=== PATIENT | male | born 1955 | race Caucasian/White ===

== ENCOUNTER → 2018-01-08 11:30 | Outpatient (CLI) | payer OTHER, SELFPAY ==
--- NOTE | 2018-01-08 11:31 | CT_ITS ---
STUDY: CT ABDOMEN AND PELVIS WITH CONTRAST REASON FOR EXAM: Male, 62 years old. Left groin pain. History of multiple hernia repairs. RADIATION DOSAGE (If Supplied By Facility): CTDIvol = ( 19.25 ) mGy, DLP = ( 1585.75 ) mGycm TECHNIQUE: Transaxial images were obtained from the dome of the diaphragm to the symphysis pubis with oral contrast. 100 ml of Isovue 300 contrast was administered. Sagittal and coronal images were reconstructed. Individualized dose optimization techniques were used for this CT. COMPARISON: None. FINDINGS: Minimal degree of right basilar atelectasis. The visualized portions of the heart are within normal limits. There is decreased attenuation of the liver consistent with steatosis. Normal gallbladder and extrahepatic biliary system. Normal spleen. Normal pancreas. Normal bilateral adrenal glands. Normal right kidney. Normal left kidney. Normal visualized stomach. Normal small intestine. Normal colon. The appendix is visualized and appears normal. There is scattered atherosclerotic calcification of the abdominal aorta, without a demonstrated aneurysm. Normal inferior vena cava. Normal retroperitoneum. Normal urinary bladder. Small bilateral hydroceles. Moderate sized left inguinal hernia containing sigmoid colon. Small bilateral benign-appearing inguinal lymph nodes. There are degenerative changes of the visualized lumbar spine. CT/Abdomen/Pelvis WITH Contrast IMPRESSION: Moderate sized left inguinal hernia containing a segment of nondilated sigmoid colon. Electronically Signed: Yves Haque MD at 13:44 EDT Tel [phone], Service support ,
[2018-01-08 13:15] LABS: CREATININE FINGERSTICK 0.9 mg/dL (0.70-1.30); EGFR FINGERSTICK > 60.0000 mL/min (>60)
== END ==
PROVIDERS: Visit Provider Surgery
DX: R10.32 Left lower quadrant pain (principal)
CPT/HCPCS: 74177; Q9967

== ENCOUNTER 2018-01-18 05:18 | Day surgery (SDC) | payer OTHER, SELFPAY ==
[2018-01-18] VITALS (8 sets, daily range): BP systolic 104–123; BP diastolic 70–85; PULSE 69–93; RESP 14–16; TEMP 36.6–36.9; O2SAT 94–98; BMI 28.2
--- NOTE | 2018-01-18 05:28 | EKG12_ITS ---
Test Reason : PRE-OP Blood Pressure : / mmHG Vent. Rate : 069 BPM Atrial Rate : 069 BPM P-R Int : 152 ms QRS Dur : 098 ms QT Int : 402 ms P-R-T Axes : 044 030 032 degrees QTc Int : 430 ms Normal sinus rhythm Normal ECG No previous ECGs available Confirmed by MAKENZIE ZAMORA, JUSTINA ([id number]), editor managing newspaper VASQUEZ MIR ([id number]) on 01/21/2018 2:08:02 PM Referred By: Niranjan Fritz Confirmed By:JUSTINA BANEGAS MD
[2018-01-18 06:38] LABS: Anion Gap 7 (5-15); BUN 24 mg/dL (7-18); Calcium,Total 8.1 mg/dL (8.5-10.1); Chloride 108 mmol/L (98-107); Creatinine, Serum 0.83 mg/dL (0.70-1.30); EST Glomerular Filtration Rate 100 mL/min (>60); Est Glom Filt Rate - Afr Amer 121 mL/min (>60); Estimated Creatinine Clearance 103.88 ml/min; Glucose 116 mg/dL (74-106); Potassium 4.1 mmol/L (3.5-5.1); Sodium Level 143 mmol/L (136-145)
[2018-01-18] MEDS: Cefazolin 2 GM in 0.9% Normal Saline 100 ML IV (07:08)
--- NOTE | 2018-01-18 07:20 | PCM.DC.HER ---
Discharge Diet: Light diet - advance as tolerated Discharge Activity: Return to Normal Activity, May Drive - when you are no longer taking narcotic pain medications., May Shower - with the bandage in place 1-2 days after surgery. Lifting Restrictions: 20 pounds for 8 weeks. Additional Activity Instructions:: Climbing stairs is fine, walking is encouraged. Sitting in bed may be uncomfortable. Sitting up using your lateral muscles (sitting up sideways) is usually more comfortable. Do not drive, work heavy equipment of sign legal documents for 24 hours. If your hernia repair was an ingunial repair, you may have scrotal swelling, an ice pack and/or athletic support can provide more comfort. Pain medications may cause nausea, you should typically eat light foods as you take your pain medications. Pain medications may also cause constipation. If you have difficulty with this, discuss with your doctor. Call your doctor if your incision/area has: Continuous Slow Oozing, Sudden Increased Bleeding, Increased Pain/ Swelling, Increased Redness, Foul Smelling Discharge Call your doctor if you observe: Fever of 101 or Higher Suture Line Care: Avoid Pulling/Pushing, Avoid Pinching/Bending Additional Dressing/Incision Instructions:: Leave the operative bandage on for 2-3 days. When you remove the bandage, leave the steri-strips on place until your follow up appointment or they fall off. Allergies/Adverse Reactions: Allergies No Known Allergies Allergy (Verified 01/16/18 08:23) Medications to take at Discharge aspirin 81 mg tablet,delayed release 81 mg PO QDAY tab 01/08/18 cartilage 40 mg-collagen 12 mg-hyaluronic ac 3.3 mg-vit C 30 mg tablet 2 tab PO QDAY ea 01/08/18 losartan 50 mg-hydrochlorothiazide 12.5 mg tablet 1 tab PO QDAY 01/08/18 omega 1-thx-ssp-fish oil 1,000 mg (120 mg-180 mg) capsule 1 cap PO DAILY 01/08/18 oxycodone-acetaminophen 5 mg-325 mg tablet 1 tab PO Q6H PRN tab 01/08/18 Oxycodone HCl/Acetaminophen [Percocet 5/325] 1 - 2 tab PO Q4H PRN PRN 4 Days #30 tab 01/18/18 The following prescriptions were given: Oxycodone HCl/Acetaminophen [Percocet 5/325] 1 - 2 tab PO Q4H PRN PRN 4 Days #30 tab PRN Reason: Pain Primary Care Physician: Gunnar Doctor,Out of [Primary Care Provider] - Please Follow Up With: Niranjan Fritz MD - [phone] When: Plan to have a follow up appointment in 7 days. Call to schedule.
--- NOTE | 2018-01-18 07:21 | PCM.OPRPT ---
Problem List (1) Recurrent inguinal hernia of left side without obstruction or gangrene Status: Acute Report of Operation Date of Procedure: 01/18/18 Pre-Operative Diagnosis: k40.91 recurrent left inguinal hernia without obstruction or gangrene Post-Operative Diagnosis: same Surgery/Procedure Performed:: Open repair of recurrent left inguinal hernia Type of Anesthesia:: General Anesthesiologist: Balbir Hughes Description of Procedure: Patient was brought in the operating room and placed in the supine position. Under excellent general endotracheal intubation the left lower quadrant of his abdomen and penis and testicles were sterilely prepped and draped in the usual fashion. Incision was made in the groin area after local was injected. Dissection was carried down superficial inferior epigastric vessel was tied off with 2-0 Vicryl. I entered Sharif's fascia identified the recurrent laryngeal nerve and protected it medially. I then painstakingly dissected the cord and vessel structures off of this thick hernia sac that went all the way down to his testicle. This took a considerable amount of time making sure that we did not injure the blood supply at all once I had the hernia sac completely dissected free I placed it back into its preperitoneal space I then placed an extra large plug into this defect tacked it with 3 sutures of 0 Prolene and then placed the onlay mesh was tacked it to the pubic tubercle with 2 sutures of 0 Prolene I ran 1 of them along the ilioinguinal ligament and the other along the shelving edge of the transversalis fascia. The espinosa ring allowed the cord and vessel structures to come through very easily. I tied the sutures superiorly on top on themselves leaving enough room so that my fifth digit could go into the hole very easily so that the blood supply was not strangulated. I injected local in the wound ilioinguinal nerve was brought back down the external oblique fascia was brought together with 2-0 Vicryl. Sharif's was brought together with 2-0 Vicryl and running 4-0 Monocryl on the skin. Testicle was brought back into the scrotum Steri-Strips are applied sterile dressings were applied and the patient tolerated the procedure well. - Admit VTE Documentation VTE Present on Admission: No VTE Mechan Device Prophylaxis: SCD's VTE Pharm Prophylaxis ordered?: No Reason prophylaxis not ordered:: Treatment Not Indicated
[2018-01-18] MEDS: Bupivacaine 0.25% 30 ML Vial (08:30)
== END 2018-01-18 11:57 | disposition home or self-care (01) ==
LOC: SDC 05:19 → AC 05:20
PROVIDERS: Anesthesiology; Visit Provider Surgery
PROC: (CPT 49520; principal; 2018-01-18 07:00)
DX: K40.91 Unilateral inguinal hernia, without obstruction or gangrene, recurrent (principal); I10 Essential (primary) hypertension
CPT/HCPCS: 49520; 36415; 80048; 93005; J7120; C1781; J2405